=== PATIENT | female | born 1960 | race Caucasian/White ===

== ENCOUNTER 2020-12-05 10:09 | Day surgery (SDC) | payer BC ==
[~2020-12-05] VITALS: Ht 162.6 cm; Wt 97.5 kg
[2020-12-05 10:41] VITALS: BP 144/60
[2020-12-05] MEDS ORDERED: TERB250T14 PO (10:41)
[2020-12-05] MEDS ORDERED: ASPI81TA45 PO (10:41)
[2020-12-05] MEDS ORDERED: ALBU8.5H8 INH (10:41)
[2020-12-05] MEDS ORDERED: MAGN400T36 PO (10:41)
[2020-12-05 11:29] LABS: BASOPHILS % (AUTO) 1 % (0-1); EOSINOPHILS % (AUTO) 3 % (1-7); LYMPHOCYTES % (AUTO) 33 % (22-44); MEAN CORPUSCULAR HEMOGLOBIN 30.9 pg (27.0-34.8); MEAN CORPUSCULAR HGB CONC 33.3 g/dL (32.4-35.8); MEAN PLATELET VOLUME 8.8 fL (7.4-10.4); MONOCYTES % (AUTO) 11 % (2-9); NEUTROPHILS % (AUTO) 52 % (42-75); PLATELET COUNT 261 x10^3/uL (130-400); RED BLOOD COUNT 4.35 x10^6/uL (3.82-5.3); RED CELL DISTRIBUTION WIDTH 13.9 % (9.6-15.2)
[2020-12-05 11:30] LABS: MD NO
[2020-12-05 11:37] LABS: ANION GAP 4 mmol/L (5-15); CALCIUM 8.7 mg/dL (8.5-10.1); CHLORIDE 111 mmol/L (98-107); CREATININE 0.62 mg/dL (0.55-1.02)
[2020-12-05] MEDS ORDERED: FENTANYL PF 100 MCG/2ML ONE (12:57)
[2020-12-05] MEDS ORDERED: MIDAZOLAM 1 MG/ML, 5ML ONE (12:57)
[2020-12-05] MEDS ORDERED: BIVALIRUDIN 250 MG ONE (12:57)
[2020-12-05] MEDS ORDERED: VERAPAMIL 2.5 MG/ML, 2ML ONE (12:57)
[2020-12-05] MEDS ORDERED: LIDOCAINE-MPF 1%, 5ML ONE (12:58)
[2020-12-05] MEDS ORDERED: HEPARIN 1,000 UNITS/ML, 10ML ONE (12:58)
== END 2020-12-05 15:43 | disposition home or self-care (01) ==
LOC: CACL 10:09
PROVIDERS: ATTEND Internal Medicine Cardiovascular Disease
DX: R07.89 Other chest pain (principal); R94.39 Abnormal result of other cardiovascular function study; G47.00 Insomnia, unspecified; E66.9 Obesity, unspecified; M13.822 Other specified arthritis, left elbow; Z68.36 Body mass index [BMI] 36.0-36.9, adult; Z88.8 Allergy status to other drugs, medicaments and biological substances; Z79.82 Long term (current) use of aspirin; Z79.899 Other long term (current) drug therapy; Z79.2 Long term (current) use of antibiotics; Z87.891 Personal history of nicotine dependence; Z98.890 Other specified postprocedural states
CPT/HCPCS: 36415; 80048; 85025; 93458; 99156; C1769; C1894; J1644; J2250; J3010; Q9967; J0583

== ENCOUNTER 2021-03-31 08:00 | Day surgery (SDC) | payer BC, OTHER ==
[~2021-03-31 08:00] MED LIST: ALBU8.5H8 INH; ASPI81TA45 PO; MAGN400T36 PO; TERB250T14 PO
[2021-03-31] MEDS ORDERED: OXYC5CAP2 PO (08:41)
[2021-03-31] MEDS ORDERED: SODIUM CHLORIDE 0.9% 1,000 ML IV SCH (09:00)
[2021-03-31] MEDS ORDERED: LIDOCAINE 1%, 20ML ONE (09:43)
[2021-03-31] MEDS ORDERED: MIDAZOLAM 1 MG/ML, 2ML ONE (09:43)
[2021-03-31] MEDS ORDERED: FENTANYL PF 100 MCG/2ML ONE (09:43)
[2021-03-31] MEDS ORDERED: ISOPROTERENOL 0.2MG/ML, 5ML ONE (09:43)
[2021-03-31 09:54] LABS: CALCIUM 8.9 mg/dL (8.5-10.1)
[2021-03-31 09:56] LABS: CREATININE 0.63 mg/dL (0.55-1.02)
[2021-03-31 10:09] LABS: ANION GAP 3 mmol/L (5-15); CHLORIDE 110 mmol/L (98-107)
[2021-03-31] MEDS ORDERED: OXYcodone IR 5MG TABLET PO PRN (11:30)
== END 2021-03-31 15:30 | disposition home or self-care (01) ==
LOC: OUT 08:00
PROVIDERS: ATTEND Internal Medicine Cardiovascular Disease
DX: I47.1 Supraventricular tachycardia (principal); E66.3 Overweight; Z68.36 Body mass index [BMI] 36.0-36.9, adult; Z79.899 Other long term (current) drug therapy; Z88.5 Allergy status to narcotic agent; Z88.8 Allergy status to other drugs, medicaments and biological substances
CPT/HCPCS: 36415; 80048; 93613; 93621; 93623; 93653; 93655; C1730; C1894; C2630; J2250; J3010; 99156; 99157